=== PATIENT | female | born 1955 | race Caucasian/White ===

== ENCOUNTER 2024-02-06 19:18 | Emergency (ER) | payer MEDICAID ==
[~2024-02-06] VITALS: Ht 167.6 cm; Wt 86.0 kg
[2024-02-06 19:36] VITALS: TEMP 98.4; O2SAT 100
[2024-02-06] MEDS ORDERED: P20 MT (19:58)
[2024-02-06] MEDS ORDERED: DIPH25CA83 MT (19:58)
[2024-02-06] MEDS: METHYLPREDNISOLONE SOD SUCC 125MG/2ML (ACT-O-VIAL) IM ONE (20:10)
[2024-02-06] MEDS: DIPHENHYDRAMINE 50MG/ML VIAL IM STA (20:10)
[2024-02-06 20:52] VITALS: BP 112/80; PULSE 70; RESP 15
== END 2024-02-06 20:54 | disposition home or self-care (01) ==
LOC: ER 19:18
DX: T78.40XA Allergy, unspecified, initial encounter (principal); I50.9 Heart failure, unspecified; Z88.6 Allergy status to analgesic agent; Z98.890 Other specified postprocedural states; X58.XXXA Exposure to other specified factors, initial encounter
CPT/HCPCS: 99284; 96372; J1200; J2919

== ENCOUNTER 2025-05-22 00:23 | Inpatient (IN) | payer MEDICAID ==
[~2025-05-22] VITALS: Ht 170.2 cm; Wt 79.4 kg
[2025-05-22] VITALS (10 sets, daily range): BP systolic 103–116; BP diastolic 49–60; PULSE 82–103; RESP 16–24; TEMP 36.1–37.0852; O2SAT 94–100
[~2025-05-22 00:23] MED LIST: DIPH25CA83 MT; P20 MT
[2025-05-22] MEDS: IPRATROPIUM BROMIDE (0.02%) 0.5MG/2.5ML NEB HHN ONE (00:41)
[2025-05-22] MEDS: ALBUTEROL (0.083%) 2.5MG/3ML NEB HHN ONE (00:42)
[2025-05-22 01:12] LABS: BASOPHILS % 0.6 % (0.0-2.0); EOSINOPHILS % 5.0 % (0.0-5.0); HEMATOCRIT. 38.5 % (36.0-48.0); HEMOGLOBIN. 12.4 g/dL (12.0-16.0); LYMPHOCYTES % 24.4 % (20.0-50.0); MEAN PLATELET VOLUME 8.4 fl (7.4-10.4); MONOCYTES % 11.1 % (2.0-8.0); NEUTROPHILS % 58.9 % (40.0-76.0); PLATELET 246 x1000/uL (130-400); RED BLOOD CELL COUNT 4.22 mill/uL (4.2-5.4); RED CELL DISTRIBUTION WIDTH 13.5 % (11.6-14.6)
[2025-05-22] MEDS: ACETAMINOPHEN 325MG TABLET PO ONE (01:24)
[2025-05-22] MEDS: PREDNISONE 20MG TABLET PO ONE (01:24)
[2025-05-22 01:25] LABS: CREATININE 0.8 mg/dL (0.6-1.0); UREA NITROGEN BLOOD 13 mg/dL (9-23)
[2025-05-22 01:28] LABS: TROPONIN I HIGH SENSITIVITY 4 ng/L (3.0-34)
[2025-05-22] MEDS ORDERED: ACETAMINOPHEN 325MG TABLET PO PRN ×2 (02:45)
[2025-05-22] MEDS ORDERED: CLONIDINE 0.1MG TABLET PO PRN (02:45)
[2025-05-22] MEDS ORDERED: ONDANSETRON HCL 4MG/2ML INJ IV PRN (02:45)
[2025-05-22] MEDS ORDERED: MAGNESIUM/ALUMINUM HYDROXIDE/SIMETHICONE 30ML UDC PO PRN (02:45)
[2025-05-22] MEDS ORDERED: DEXTROSE 50% WATER 50ML SYRINGE IV PRN (02:45)
[2025-05-22] MEDS ORDERED: IPRATROPIUM/ALBUTEROL 0.5-3(2.5)MG/3ML NEB HHN PRN (02:45)
[2025-05-22] MEDS: IPRATROPIUM/ALBUTEROL 0.5-3(2.5)MG/3ML NEB HHN SCH (03:58)
[2025-05-22] MEDS: BUDESONIDE 0.5MG/2ML NEB HHN SCH (03:59)
[2025-05-22] MEDS ORDERED: AZITHROMYCIN 500MG/250ML 250 ML IV SCH (06:00)
[2025-05-22 06:28] LABS: INFLUENZA TYPE A Presumptive Negative (Pres. Neg.)
[2025-05-22 06:29] LABS: INFLUENZA TYPE B Presumptive Negative (Pres. Neg.)
[2025-05-22 06:30] LABS: RESPIRATORY SYNCYTIAL VIRUS Not Detected (Not Detectd)
[2025-05-22] MEDS: LEVOTHYROXINE SODIUM 75MCG TABLET PO SCH (07:01)
[2025-05-22] MEDS: METHYLPREDNISOLONE SOD SUCC 125MG/2ML (ACT-O-VIAL) IV SCH ×2 (07:01→14:48)
[2025-05-22] MEDS: AZITHROMYCIN 500MG/250ML 250 ML IV SCH (07:02)
[2025-05-22] MEDS: ENOXAPARIN 40MG/0.4ML SYR SUBCUT SCH (08:50)
[2025-05-22] MEDS: PANTOPRAZOLE SODIUM 40 MG/VIAL IV SCH (08:51)
[2025-05-22] MEDS: ASPIRIN 81MG EC TABLET PO SCH (08:51)
[2025-05-22] MEDS: FUROSEMIDE 20MG/2ML VIAL IVP SCH (08:52)
[2025-05-22] MEDS ORDERED: METHYLPREDNISOLONE SOD SUCC 125MG/2ML (ACT-O-VIAL) IV SCH (12:00)
[2025-05-22 13:14] LABS: PHOSPHORUS 2.7 mg/dL (2.5-4.9)
[2025-05-22 22:41] LABS: CLARITY URINE CLEAR (CLEAR); COLOR URINE YELLOW (YELLOW); GLUCOSE URINE NEGATIVE (NEGATIVE); KETONES URINE NEGATIVE (NEGATIVE); LEUKOCYTE ESTERASE URINE NEGATIVE (NEGATIVE); NITRITE URINE NEGATIVE (NEGATIVE); OCCULT BLOOD URINE NEGATIVE (NEGATIVE); PH URINE 5.0 (4.5-8.0); PROTEIN URINE NEGATIVE (NEGATIVE); SPECIFIC GRAVITY URINE 1.012 (1.005-1.030); UROBILINOGEN URINE 0.2 E.U./dL (0.2-1.0)
[2025-05-22 23:18] LABS: *AMPHETAMINES SCREEN URINE NEGATIVE (NEGATIVE); *BARBITURATES SCREEN URINE NEGATIVE (NEGATIVE); *BENZODIAZEPINES SCREEN URINE NEGATIVE (NEGATIVE); *COCAINE SCREEN URINE NEGATIVE (NEGATIVE); CANNABINOID URINE SCREEN NEGATIVE (NEGATIVE); ECSTASY MDMA SCREEN URINE NEGATIVE (NEGATIVE); METHADONE URINE SCREEN NEGATIVE (NEGATIVE); OPIATES URINE SCREEN NEGATIVE (NEGATIVE); PHENCYCLIDINE URINE SCREEN NEGATIVE (NEGATIVE)
[2025-05-23] VITALS (7 sets, daily range): BP systolic 102–124; BP diastolic 49–59; PULSE 90–106; RESP 18–22; TEMP 36.3–36.7; O2SAT 96–99
[2025-05-23 13:03] LABS: ASPARTATE AMINOTRANSFERASE 15 IU/L (<34); BILIRUBIN DIRECT < 0.1 mg/dL (<=3.0); BILIRUBIN TOTAL 0.3 mg/dL (0.1-1.0); PROTEIN TOTAL 6.8 g/dL (6.0-8.3)
[2025-05-23 13:15] LABS: CREATININE 0.8 mg/dL (0.6-1.0); TRIGLYCERIDE 71 mg/dL (0-150); UREA NITROGEN BLOOD 19 mg/dL (9-23)
[2025-05-23 13:16] LABS: LDL CHOLESTEROL 140 mg/dL (5-100)
[2025-05-23 13:19] LABS: T4 FREE 0.95 ng/dL (0.89-1.76)
[2025-05-23] MEDS: DICLOFENAC SODIUM 1% GEL 50GM TOP SCH (17:00)
[2025-05-23] MEDS: LIDOCAINE 5% PATCH TOP SCH (17:26)
[2025-05-24 01:13] VITALS: PULSE 92; RESP 22; O2SAT 96
[2025-05-24 08:45] VITALS: PULSE 88; RESP 22; O2SAT 98
== END 2025-05-24 10:02 | disposition left against medical advice (07) | DRG 140 ==
LOC: ER 00:23 → 5WST 01:44 → EDBEDREQTM 01:48 → EDBEDREQ 01:48 → ENRESERV 02:18
PROVIDERS: ADMIT Hospitalist; ATTEND Hospitalist
DX: J44.1 Chronic obstructive pulmonary disease with (acute) exacerbation (principal); I50.32 Chronic diastolic (congestive) heart failure; Z59.00 Homelessness unspecified; J44.0 Chronic obstructive pulmonary disease with (acute) lower respiratory infection; Z95.2 Presence of prosthetic heart valve; E03.9 Hypothyroidism, unspecified; J20.9 Acute bronchitis, unspecified; D72.829 Elevated white blood cell count, unspecified; Z53.29 Procedure and treatment not carried out because of patient's decision for other reasons; M17.11 Unilateral primary osteoarthritis, right knee; T38.0X5A Adverse effect of glucocorticoids and synthetic analogues, initial encounter; Z79.51 Long term (current) use of inhaled steroids; Z79.82 Long term (current) use of aspirin; Z88.6 Allergy status to analgesic agent; R53.81 Other malaise; Z88.8 Allergy status to other drugs, medicaments and biological substances; Z79.899 Other long term (current) drug therapy; Y92.89 Other specified places as the place of occurrence of the external cause
CPT/HCPCS: 36415; 71045; 73560; 80048; 80061; 80076; 80305; 80320; 81003; 82040; 83036; 83735; 83880; 84100; 84439; 84443; 84484; 85025; 87420; 87804; 93005; 94070; 94640; 94664; 94760; 97162; 97166; 98960; 99285; J0456; J1650; J1938; J2470; J2919; J7512; J7626; G0480

== ENCOUNTER 2025-06-20 09:36 | Inpatient (IN) | payer MEDICAID ==
[2025-06-20] VITALS (7 sets, daily range): BP systolic 114–143; BP diastolic 54–70; PULSE 88–103; RESP 16–20; TEMP 35.9–36.5292; O2SAT 96–99
[~2025-06-20] VITALS: Ht 160 cm; Wt 81.6 kg
[2025-06-20] MEDS: FUROSEMIDE 40MG/4ML VIAL IV ONE (10:35)
[2025-06-20] MEDS: METHYLPREDNISOLONE SOD SUCC 125MG/2ML (ACT-O-VIAL) IV ONE (10:35)
[2025-06-20 10:36] LABS: BASOPHILS % 0.6 % (0.0-2.0); EOSINOPHILS % 6.7 % (0.0-5.0); HEMATOCRIT. 35.8 % (36.0-48.0); HEMOGLOBIN. 11.8 g/dL (12.0-16.0); LYMPHOCYTES % 33.7 % (20.0-50.0); MEAN PLATELET VOLUME 7.9 fl (7.4-10.4); MONOCYTES % 9.0 % (2.0-8.0); NEUTROPHILS % 50.0 % (40.0-76.0); PLATELET 257 x1000/uL (130-400); RED BLOOD CELL COUNT 3.87 mill/uL (4.2-5.4); RED CELL DISTRIBUTION WIDTH 13.8 % (11.6-14.6)
[2025-06-20] MEDS: ALBUTEROL (0.083%) 2.5MG/3ML NEB HHN ONE (10:50)
[2025-06-20] MEDS: IPRATROPIUM BROMIDE (0.02%) 0.5MG/2.5ML NEB HHN ONE (10:51)
[2025-06-20 10:57] LABS: CREATININE 0.7 mg/dL (0.6-1.0); TROPONIN I HIGH SENSITIVITY 12 ng/L (3.0-34)
[2025-06-20 10:58] LABS: PROTEIN TOTAL 6.8 g/dL (6.0-8.3); UREA NITROGEN BLOOD 15 mg/dL (9-23)
[2025-06-20 10:59] LABS: ASPARTATE AMINOTRANSFERASE 20 IU/L (<34)
[2025-06-20 11:00] LABS: BILIRUBIN DIRECT < 0.1 mg/dL (<=3.0); BILIRUBIN TOTAL 0.4 mg/dL (0.1-1.0)
[2025-06-20] MEDS ORDERED: ACETAMINOPHEN 325MG TABLET PO PRN ×2 (11:45)
[2025-06-20] MEDS ORDERED: DOCUSATE SODIUM 100MG CAPSULE PO PRN (11:45)
[2025-06-20] MEDS ORDERED: ONDANSETRON HCL 4MG/2ML INJ IV PRN (11:45)
[2025-06-20] MEDS ORDERED: CLONIDINE 0.1MG TABLET PO PRN (11:45)
[2025-06-20] MEDS ORDERED: IPRATROPIUM/ALBUTEROL 0.5-3(2.5)MG/3ML NEB HHN PRN (11:45)
[2025-06-20] MEDS ORDERED: LEVOFLOXACIN 500MG PREMIX 100 ML IV SCH (12:15)
[2025-06-20] MEDS: LEVOTHYROXINE SODIUM 75MCG TABLET PO SCH (13:00)
[2025-06-20 15:58] LABS: *AMPHETAMINES SCREEN URINE NEGATIVE (NEGATIVE); *BARBITURATES SCREEN URINE NEGATIVE (NEGATIVE); *BENZODIAZEPINES SCREEN URINE NEGATIVE (NEGATIVE); *COCAINE SCREEN URINE NEGATIVE (NEGATIVE); CANNABINOID URINE SCREEN NEGATIVE (NEGATIVE); ECSTASY MDMA SCREEN URINE NEGATIVE (NEGATIVE); METHADONE URINE SCREEN NEGATIVE (NEGATIVE); OPIATES URINE SCREEN NEGATIVE (NEGATIVE); PHENCYCLIDINE URINE SCREEN NEGATIVE (NEGATIVE)
[2025-06-20] MEDS: PREDNISONE 20MG TABLET PO SCH (17:31)
[2025-06-20] MEDS: METOPROLOL SUCCINATE 50MG ER TABLET PO SCH (17:32)
[2025-06-20] MEDS: PANTOPRAZOLE SODIUM 40 MG/VIAL IV SCH (17:33)
[2025-06-20] MEDS: IPRATROPIUM/ALBUTEROL 0.5-3(2.5)MG/3ML NEB HHN SCH (17:51)
[2025-06-20] MEDS: LEVOFLOXACIN 750MG PREMIX 150 ML IV SCH (17:52)
[2025-06-20 19:09] LABS: CLARITY URINE CLEAR (CLEAR); GLUCOSE URINE NEGATIVE (NEGATIVE); KETONES URINE NEGATIVE (NEGATIVE); LEUKOCYTE ESTERASE URINE NEGATIVE (NEGATIVE); NITRITE URINE NEGATIVE (NEGATIVE); OCCULT BLOOD URINE TRACE (NEGATIVE); PH URINE 5.5 (4.5-8.0); PROTEIN URINE NEGATIVE (NEGATIVE); SPECIFIC GRAVITY URINE 1.013 (1.005-1.030); UROBILINOGEN URINE 0.2 E.U./dL (0.2-1.0)
[2025-06-20 19:43] LABS: COLOR URINE STRAW (YELLOW)
[2025-06-20 19:45] LABS: BACTERIA URINE NONE SEEN; MUCUS URINE TRACE /lpf (< = 2+); RBC URINE NONE SEEN /hpf (0-2); SQUAMOUS EPITHELIAL CELL URINE RARE /lpf (RARE/1+); WBC URINE NONE SEEN /hpf (0-2)
[2025-06-20 22:35] LABS: TROPONIN I HIGH SENSITIVITY 7 ng/L (3.0-34)
[2025-06-20 22:38] LABS: VITAMIN B12 SERUM 199 pg/mL (211-911)
[2025-06-20 22:48] LABS: FOLIC ACID (FOLATE) SERUM 7.71 ng/mL (>5.38)
[2025-06-21] VITALS (10 sets, daily range): BP systolic 101–132; BP diastolic 43–84; PULSE 65–98; RESP 14–19; TEMP 36.4–36.7; O2SAT 95–98
[2025-06-21 06:35] LABS: BASOPHILS % 0.1 % (0.0-2.0); EOSINOPHILS % 0.0 % (0.0-5.0); HEMATOCRIT. 32.8 % (36.0-48.0); HEMOGLOBIN. 11.0 g/dL (12.0-16.0); LYMPHOCYTES % 15.7 % (20.0-50.0); MEAN PLATELET VOLUME 8.8 fl (7.4-10.4); MONOCYTES % 6.2 % (2.0-8.0); NEUTROPHILS % 78.0 % (40.0-76.0); PLATELET 239 x1000/uL (130-400); RED BLOOD CELL COUNT 3.59 mill/uL (4.2-5.4); RED CELL DISTRIBUTION WIDTH 13.6 % (11.6-14.6)
[2025-06-21 06:56] LABS: CREATININE 1.0 mg/dL (0.6-1.0); TRIGLYCERIDE 75.0 mg/dL (0-150); UREA NITROGEN BLOOD 19.0 mg/dL (9-23)
[2025-06-21 06:57] LABS: LDL CHOLESTEROL 123.0 mg/dL (5-100)
[2025-06-21 06:58] LABS: T4 FREE 0.73 ng/dL (0.89-1.76)
[2025-06-21] MEDS: FUROSEMIDE 20MG/2ML VIAL IVP SCH (08:45)
[2025-06-21] MEDS: ASPIRIN 81MG EC TABLET PO SCH (08:45)
[2025-06-21] MEDS: CYANOCOBALAMIN 1000MCG/ML VIAL IM SCH (14:04)
[2025-06-21] MEDS: SODIUM CHLORIDE 0.45% 1,000 ML IV ONE (14:05)
[2025-06-21] MEDS: MAGNESIUM 2 G PREMIX 50 ML IV NR (14:05)
[2025-06-21] MEDS: MULTIVITAMINS,THER W-MINERALS TABLET PO SCH (14:05)
[2025-06-21] MEDS: BUDESONIDE 0.5MG/2ML NEB HHN SCH (15:40)
[2025-06-21] MEDS: LEVOFLOXACIN 750MG PREMIX 150 ML IV SCH (17:13)
[2025-06-21] MEDS: METHYLPREDNISOLONE SOD SUCC 40MG/ML (ACT-O-VIAL) IV SCH (21:43)
[2025-06-21] MEDS: ATORVASTATIN CALCIUM 20MG TABLET PO SCH (21:44)
[2025-06-21] MEDS: AMLODIPINE 2.5MG TABLET PO SCH (21:44)
[2025-06-22] VITALS (11 sets, daily range): BP systolic 102–135; BP diastolic 53–76; PULSE 79–92; RESP 16–20; TEMP 36.6–36.9; O2SAT 95–98
[2025-06-22 06:38] LABS: BASOPHILS % 0.0 % (0.0-2.0); EOSINOPHILS % 0.0 % (0.0-5.0); HEMATOCRIT. 33.9 % (36.0-48.0); HEMOGLOBIN. 11.3 g/dL (12.0-16.0); LYMPHOCYTES % 11.7 % (20.0-50.0); MEAN PLATELET VOLUME 8.8 fl (7.4-10.4); MONOCYTES % 3.5 % (2.0-8.0); NEUTROPHILS % 84.8 % (40.0-76.0); PLATELET 251 x1000/uL (130-400); RED BLOOD CELL COUNT 3.71 mill/uL (4.2-5.4); RED CELL DISTRIBUTION WIDTH 13.8 % (11.6-14.6)
[2025-06-22 06:49] LABS: CREATININE 0.9 mg/dL (0.6-1.0)
[2025-06-22 06:50] LABS: UREA NITROGEN BLOOD 20 mg/dL (9-23)
[2025-06-22 06:52] LABS: PHOSPHORUS 3.4 mg/dL (2.5-4.9)
[2025-06-22] MEDS: FAMOTIDINE 20MG/2ML VIAL IV SCH (09:00)
[2025-06-22] MEDS: ENOXAPARIN 30MG/0.3ML SYR SUBCUT SCH (10:00)
[2025-06-22] MEDS: MUPIROCIN 2% OINT 22GM NS SCH (20:34)
[2025-06-23] VITALS (7 sets, daily range): BP systolic 121–122; BP diastolic 66–75; PULSE 77–88; RESP 16–20; TEMP 36.5–36.7; O2SAT 96–99
[2025-06-23 06:50] LABS: CREATININE 0.8 mg/dL (0.6-1.0)
[2025-06-23 06:51] LABS: UREA NITROGEN BLOOD 19 mg/dL (9-23)
[2025-06-23 07:06] LABS: PLATELET 254 x1000/uL (130-400); RED BLOOD CELL COUNT 3.66 mill/uL (4.2-5.4); RED CELL DISTRIBUTION WIDTH 13.8 % (11.6-14.6)
[2025-06-23] MEDS: MAGNESIUM/ALUMINUM HYDROXIDE/SIMETHICONE 30ML UDC PO PRN (08:24)
[2025-06-23] MEDS: GUAIFENESIN 200MG/10ML SUGAR FREE UDC PO PRN (10:12)
[2025-06-23] MEDS: LEVOFLOXACIN 250MG TABLET PO SCH (10:12)
[2025-06-23] MEDS ORDERED: P20 MT ×2 (10:53→10:57)
[2025-06-23] MEDS ORDERED: ATOR20TA PO ×2 (10:53→10:57)
[2025-06-23] MEDS ORDERED: ALBU18HF2 IH ×2 (10:53→10:57)
[2025-06-23] MEDS ORDERED: LEVO75TA7 PO ×2 (10:53→10:57)
[2025-06-23] MEDS ORDERED: FLUT1BLS INH ×2 (10:53→10:57)
[2025-06-23] MEDS ORDERED: TIOT4MIS2 IH ×2 (10:53→10:57)
[2025-06-23] MEDS ORDERED: AMLO2.5T45 PO ×2 (10:53→10:57)
[2025-06-23] MEDS ORDERED: FAMOTIDINE 20MG TABLET PO SCH (21:00)
[2025-08-09] MEDS ORDERED: TIOT4MIS2 IH (12:34)
[2025-08-09] MEDS ORDERED: FLUT1BLS INH (12:34)
[2025-08-09] MEDS ORDERED: ALBU18HF2 IH (12:34)
[2025-08-09] MEDS ORDERED: P20 MT (12:34)
[2025-08-09] MEDS ORDERED: ALBU90AE INH (14:18)
[2025-08-09] MEDS ORDERED: BENZ100C86 MT (14:18)
== END 2025-06-23 17:00 | disposition home or self-care (01) | DRG 140 ==
LOC: ER 09:36 → 8WST 11:07 → EDBEDREQTM 11:08 → EDBEDREQ 11:08
PROVIDERS: ADMIT Hospitalist; ATTEND Hospitalist
DX: J44.1 Chronic obstructive pulmonary disease with (acute) exacerbation (principal); J45.901 Unspecified asthma with (acute) exacerbation; I11.0 Hypertensive heart disease with heart failure; I50.32 Chronic diastolic (congestive) heart failure; D64.9 Anemia, unspecified; E03.9 Hypothyroidism, unspecified; Z95.3 Presence of xenogenic heart valve; E53.8 Deficiency of other specified B group vitamins; E78.5 Hyperlipidemia, unspecified; R73.03 Prediabetes; R73.9 Hyperglycemia, unspecified; Z59.00 Homelessness unspecified; Z88.6 Allergy status to analgesic agent; Z22.322 Carrier or suspected carrier of Methicillin resistant Staphylococcus aureus; Z79.899 Other long term (current) drug therapy
CPT/HCPCS: 36415; 71045; 80048; 80061; 80076; 80305; 81003; 82607; 82728; 82746; 83036; 83540; 83550; 83735; 83880; 84100; 84439; 84443; 84484; 85025; 85027; 93005; 93970; 94070; 94640; 94664; 98960; 99285; A4615; J1308; J1650; J1938; J1956; J2470; J2919; J3420; J3475; J7512; J7626